=== PATIENT | male | born 1965 | race Caucasian/White ===

== ENCOUNTER 2018-01-26 19:10 | Emergency (ER) | END 2018-01-27 01:46 | disposition home or self-care (01) ==

== ENCOUNTER 2018-03-19 13:41 | Emergency (ER) | END 2018-03-19 19:00 | disposition left against medical advice (07) ==

== ENCOUNTER 2018-09-30 01:27 | Emergency (ER) | payer MEDICAID ==
[~2018-09-30] VITALS: Wt 67.1 kg
[~2018-09-30 01:27] MED LIST: CHLO25CA9 PO; CLOT30CR24 TOP; IBUP200C11 PO
[2018-09-30] MEDS ORDERED: SOD CHLORIDE 0.9% 1,000 ML IV STA (01:57)
[2018-09-30] MEDS ORDERED: PANTOPRAZOLE IV 80 MG in SOD CHLORIDE 0.9% 100 ML IVPB STA (01:57)
[2018-09-30] MEDS ORDERED: OCTREOTIDE 50 MCG in SOD CHLORIDE 0.9% 25 ML IVPB STA (01:57)
[2018-09-30] MEDS ORDERED: ONDANSETRON 4 MG INJ IV STA (01:57)
[2018-09-30] MEDS ORDERED: NOVO3I SC (03:41)
[2018-09-30] MEDS ORDERED: SUCR1TAB56 PO (05:34)
[2018-09-30] MEDS ORDERED: RANI150T35 PO (05:34)
[2018-09-30 05:50] VITALS: BP 115/77; PULSE 84; RESP 18
--- NOTE | 2018-10-05 23:21 | ERD ---
ER Documentation Chief Complaint Chief Complaint states been drinking etoh, vomiting blood, abd pain HPI 53-year-old male who states been drinking alcohol and that he vomited blood twice. Denies suicidal homicidal ideation. Denies auditory visual hallucinations denies any fevers or chills. Denies any other current complaints. 2 episodes of blood-streaked vomitus. ROS All systems reviewed and are negative except as per history of present illness. Medications Home Meds Active Scripts Ranitidine Hcl* (Zantac*) 150 Mg Tablet, 150 MG PO BID PRN for EPIGASTRIC PAIN, #30 TAB Prov:COLBY KLEIN 09/30/18 Sucralfate* (Carafate*) 1 Gm Tab, 1 GM PO QID, #30 TAB Prov:COLBY KLEIN 09/30/18 Reported Medications Insulin Aspart* (Novolog Insulin Pen*) 100 Unit/Ml Soln, 1 UNIT SC WITH BREAKFAST DINNE, EA INJECT SC 45u at Breakfast and 35u at Dinner 09/30/18 Discontinued Reported Medications Ibuprofen* (Advil*) 200 Mg Capsule, PO PRN 07/02/13 Discontinued Scripts Chlordiazepoxide* (Chlordiazepoxide*) 25 Mg Capsule, 25 MG PO Q8 PRN for ANXIETY, #10 CAP Prov:BRENDON CHAMBERS MD 01/27/18 Clotrimazole* (Clotrimazole* AF) 1% - 30 Gm Cream.gm., 1 APPLIC TOP BID for 7 Days, TUB Prov:SOPHIE SARGENT MD 04/27/16 Allergies Allergies: Coded Allergies: No Known Allergy (Unverified , 09/30/18) PMhx/Soc History of Surgery: Yes (L. ANKLE) Hx Miscellaneous Medical Probl: Yes (ALCOHOLISM, DM) Hx Alcohol Use: Yes (daily wine) Hx Substance Use: No Hx Tobacco Use: No Smoking Status: Unknown if ever smoked Physical Exam Physical Exam Const: No acute distress Head: Atraumatic Eyes: Normal Conjunctiva ENT: Normal External Ears, Nose and Mouth. Neck: Full range of motion. No meningismus. Resp: Clear to auscultation bilaterally Cardio: Regular rate and rhythm, no murmurs Abd: Soft, non tender, non distended. Normal bowel sounds Skin: No petechiae or rashes Back: No midline or flank tenderness Ext: No cyanosis, or edema Neur: Awake and alert Psych: Normal Mood and Affect Results 24 hrs Laboratory Tests Test 09/30/18 02:32 09/30/18 02:34 White Blood Count 9.3 10^3/ul Red Blood Count 4.28 10^6/ul Hemoglobin 12.7 g/dl Hematocrit 38.2 % Mean Corpuscular Volume 89.3 fl Mean Corpuscular Hemoglobin 29.7 pg Mean Corpuscular Hemoglobin Concent 33.2 g/dl Red Cell Distribution Width 13.4 % Platelet Count 113 10^3/UL Mean Platelet Volume 12.6 fl Immature Granulocytes % 0.400 % Neutrophils % 71.4 % Lymphocytes % 14.4 % Monocytes % 7.4 % Eosinophils % 5.8 % Basophils % 0.6 % Nucleated Red Blood Cells % 0.0 /100WBC Immature Granulocytes # 0.040 10^3/ul Neutrophils # 6.6 10^3/ul Lymphocytes # 1.3 10^3/ul Monocytes # 0.7 10^3/ul Eosinophils # 0.5 10^3/ul Basophils # 0.1 10^3/ul Nucleated Red Blood Cells # 0.0 10^3/ul Prothrombin Time 14.2 Sec Prothrombin Time Ratio 1.1 INR International Normalized Ratio 1.09 Activated Partial Thromboplast Time 31.5 Sec Lipase 84 U/L Sodium Level 144 mmol/L Potassium Level 3.7 mmol/L Chloride Level 99 mmol/L Carbon Dioxide Level 26 mmol/L Anion Gap 19 Blood Urea Nitrogen 10 mg/dl Creatinine 0.52 mg/dl Est Glomerular Filtrat Rate mL/min > 60 mL/min Glucose Level 251 mg/dl Calcium Level 8.9 mg/dl Total Bilirubin 0.4 mg/dl Direct Bilirubin 0.00 mg/dl Indirect Bilirubin 0.4 mg/dl Aspartate Amino Transf (AST/SGOT) 131 IU/L Alanine Aminotransferase (ALT/SGPT) 31 IU/L Alkaline Phosphatase 359 IU/L Troponin I < 0.012 ng/ml Total Protein 8.9 g/dl Albumin 4.2 g/dl Globulin 4.70 g/dl Albumin/Globulin Ratio 0.89 Current Medications Medications Dose Sig/Bambi Start Time Status Last (Trade) Ordered Route PRN Stop Time Admin Dose Reason Admin Sodium 1,000 ml @ Q1H STAT 09/30/18 DC 09/30/18 Chloride 1,000 mls/hr IV 01:57 09/30/18 02:44 02:56 Pantoprazole 100 ml @ ONCE STAT 09/30/18 DC 80 mg/Sodium 400 mls/hr IVPB 01:57 09/30/18 Chloride 02:11 Octreotide 26 ml @ Q16M STAT 09/30/18 DC Acetate 50 100 mls/hr IVPB 01:57 09/30/18 mcg/ Sodium 02:12 Chloride Ondansetron 4 mg ONCE STAT 09/30/18 DC 09/30/18 HCl (Zofran IV 01:57 09/30/18 02:44 Inj) 01:59 Procedures/MDM EKG: Rate/Rhythm: [Normal Sinus Rhythm] QRS, ST, T-waves: [No changes consistent w/ acute ischemia] Impression: [No evidence of ischemia or arrhythmia] Chest X-ray 1V Interpreted by me: Soft Tissue: No acute abnormalities Bones: No acute abnormalities Mediastinum/Cardiac Silhouette/Lungs: [No acute abnormalities] Medical decision making: This a 52-year-old male likely has mild erosive gastritis secondary to alcohol abuse. At this point clinically stable for outpatient management. No active bleeding. Normal CBC. Will be discharged home. Advised stop drinking. Departure Diagnosis: Primary Impression: Gastritis Gastritis type: unspecified gastritis Chronicity: unspecified Gastritis bleeding: with bleeding Qualified Codes: K29.71 - Gastritis, unspecified, with bleeding Condition: Stable Patient Instructions: Gastritis (Adult) COLBY KLEIN Oct 05, 2018 23:21
== END 2018-09-30 05:50 | disposition home or self-care (01) ==
LOC: E/R 01:27
DX: K29.71 Gastritis, unspecified, with bleeding (principal); E11.9 Type 2 diabetes mellitus without complications; Z79.4 Long term (current) use of insulin
CPT/HCPCS: 80053; 83690; 84484; 85025; 85610; 85730; 86850; 86900; 86901; 93005; C9113; J2354; J2405; J7030; Z7610; 36415; 96361; 96374

== ENCOUNTER 2018-11-08 11:18 | Emergency (ER) | payer MEDICAID ==
[~2018-11-08] VITALS: Ht 165.1 cm; Wt 66.0 kg
[~2018-11-08 11:18] MED LIST changes: -CHLO25CA9 PO; -CLOT30CR24 TOP; -IBUP200C11 PO; +NOVO3I SC; +RANI150T35 PO; +SUCR1TAB56 PO
[2018-11-08 11:23] VITALS: Ht 165.1 cm; Wt 66.0 kg
[2018-11-08] MEDS ORDERED: SOD CHLORIDE 0.9% 1,000 ML IV STA (16:03)
[2018-11-08] MEDS ORDERED: IBUP-1542 PO (17:11)
[2018-11-08] MEDS ORDERED: NOVO7030 SC ×2 (17:19)
[2018-11-08] MEDS ORDERED: GABA300C16 PO (17:20)
[2018-11-08 17:36] VITALS: BP 122/83; PULSE 98; RESP 14
--- NOTE | 2018-11-08 18:10 | ERD ---
ER Documentation Chief Complaint Chief Complaint diabetic , last drink last night , feels weak , vomiting HPI Patient is a 53-year-old male with diabetes who presents with headache. The patient says that he is homeless. He is diabetic. He says that he has had "3 attacks to the head" when his vision goes dark. It comes and goes. He has headache as well. He said that he has not been eating for the past 3 days because he has no money. However he has been drinking alcohol. Upon review of old medical records this is the patient's sixth visit to the ER since 2012. He does not remember his primary doctor at this time. ROS All systems reviewed and are negative except as per history of present illness. Medications Home Meds Active Scripts Ibuprofen* (Motrin*) 600 Mg Tab, 600 MG PO Q6H PRN for PAIN AND OR ELEVATED TEMP, #30 TAB Prov:DARION MARCANO MD 11/08/18 Reported Medications Gabapentin* (Gabapentin*) 300 Mg Capsule, 300 MG PO BID, #60 CAP 11/08/18 Insulin Isophan/Regular (Humulin 70/30) 100 Units/Ml Susp, 35 UNIT SC QPM, EA 11/08/18 Insulin Isophan/Regular (Humulin 70/30) 100 Units/Ml Susp, 45 UNIT SC QAM, EA 11/08/18 Discontinued Reported Medications Insulin Aspart* (Novolog Insulin Pen*) 100 Unit/Ml Soln, 1 UNIT SC WITH BREAKFAST DINNE, EA INJECT SC 45u at Breakfast and 35u at Dinner 09/30/18 Discontinued Scripts Ranitidine Hcl* (Zantac*) 150 Mg Tablet, 150 MG PO BID PRN for EPIGASTRIC PAIN, #30 TAB Prov:COLBY KLEIN 09/30/18 Sucralfate* (Carafate*) 1 Gm Tab, 1 GM PO QID, #30 TAB Prov:COLBY KLEIN 09/30/18 Allergies Allergies: Coded Allergies: No Known Allergy (Unverified , 09/30/18) PMhx/Soc History of Surgery: Yes (L. ANKLE) Anesthesia Reaction: No Hx Neurological Disorder: No Hx Respiratory Disorders: No Hx Cardiac Disorders: No Hx Psychiatric Problems: No Hx Miscellaneous Medical Probl: Yes (ALCOHOLISM, DM) Hx Alcohol Use: Yes (daily beer) Hx Substance Use: No Hx Tobacco Use: No Smoking Status: Never smoker FmHx Family History: No diabetes Physical Exam Vitals Vital Signs Date Temp Pulse Resp B/P (MAP) Pulse Ox O2 O2 Flow FiO2 Time Delivery Rate 11/08/18 68 14 122/83 99 Room Air 17:36 (96) 98 11/08/18 98 16 128/86 99 Room Air 16:14 (100) 11/08/18 98.3 62 18 122/65 99 Room Air 15:33 (84) 11/08/18 99.1 103 18 124/72 98 11:23 (89) Physical Exam Const: No acute distress Head: Atraumatic Eyes: Normal Conjunctiva ENT: Normal External Ears, Nose and Mouth. Neck: Full range of motion. No meningismus. Resp: Clear to auscultation bilaterally Cardio: Regular rate and rhythm, no murmurs Abd: Soft, non tender, non distended. Normal bowel sounds Skin: No petechiae or rashes Back: No midline or flank tenderness Ext: No cyanosis, or edema Neur: Awake and alert, cranial nerves II through XII intact, strength is 5 out of 5 in all 4 extremities, no pronator drift, cafeteria director strength is equal bilaterally, no slurred speech Psych: Normal Mood and Affect Result Diagram: 11/08/18 1613 11/08/18 1613 Results 24 hrs Laboratory Tests Test 11/08/18 11:23 11/08/18 15:58 11/08/18 16:13 Bedside Glucose 383 mg/dL 156 mg/dL White Blood Count 14.3 10^3/ul Red Blood Count 4.32 10^6/ul Hemoglobin 12.7 g/dl Hematocrit 38.2 % Mean Corpuscular Volume 88.4 fl Mean Corpuscular Hemoglobin 29.4 pg Mean Corpuscular 33.2 g/dl Hemoglobin Concent Red Cell Distribution Width 14.0 % Platelet Count 188 10^3/UL Mean Platelet Volume 12.6 fl Immature Granulocytes % 0.700 % Neutrophils % 69.0 % Lymphocytes % 16.7 % Monocytes % 7.7 % Eosinophils % 5.2 % Basophils % 0.7 % Nucleated Red Blood Cells % 0.0 /100WBC Immature Granulocytes # 0.100 10^3/ul Neutrophils # 9.9 10^3/ul Lymphocytes # 2.4 10^3/ul Monocytes # 1.1 10^3/ul Eosinophils # 0.8 10^3/ul Basophils # 0.1 10^3/ul Nucleated Red Blood Cells # 0.0 10^3/ul Urine Color LUZMA Urine Clarity SLIGHTLY CLOUDY Urine pH 5.0 Urine Specific [place] 1.036 Urine Ketones NEGATIVE mg/dL Urine Nitrite NEGATIVE mg/dL Urine Bilirubin 2+ mg/dL Urine Urobilinogen 2+ mg/dL Urine Leukocyte Esterase NEGATIVE Aroldo/ul Urine Microscopic RBC 2 /HPF Urine Microscopic WBC 4 /HPF Urine Mucus MANY /HPF Urine Hemoglobin NEGATIVE mg/dL Urine Glucose 1+ mg/dL Urine Total Protein 1+ mg/dl Sodium Level 140 mmol/L Potassium Level 3.8 mmol/L Chloride Level 97 mmol/L Carbon Dioxide Level 29 mmol/L Anion Gap 14 Blood Urea Nitrogen 11 mg/dl Creatinine 0.67 mg/dl Est Glomerular Filtrat > 60 mL/min Rate mL/min Glucose Level 186 mg/dl Calcium Level 9.3 mg/dl Total Bilirubin 0.6 mg/dl Direct Bilirubin 0.00 mg/dl Indirect Bilirubin 0.6 mg/dl Aspartate Amino Transf (AST/SGOT) 122 IU/L Alanine 18 IU/L Aminotransferase (ALT/SGPT) Alkaline Phosphatase 567 IU/L Troponin I < 0.012 ng/ml Total Protein 9.6 g/dl Albumin 4.0 g/dl Globulin 5.60 g/dl Albumin/Globulin Ratio 0.71 Lipase 318 U/L Urine Opiates Screen Negative Urine Barbiturates Negative Urine Amphetamines Screen Negative Urine Benzodiazepines Screen Negative Urine Cocaine Screen Negative Urine Cannabinoids Negative Ethyl Alcohol Level 161.0 mg/dl Current Medications Medications Dose Sig/Bambi Start Time Status Last (Trade) Ordered Route PRN Stop Time Admin Dose Reason Admin Sodium 1,000 ml @ Q1H STAT 11/08/18 DC 11/08/18 Chloride 1,000 mls/hr IV 16:03 16:13 11/08/18 17:02 Procedures/MDM CT brain read by radiology. Patient is a 53-year-old male who presents with headache. Laboratory studies were basically normal. CT scan of the brain shows no sign of stroke or brain mass. At this point I doubt stroke, intra-cranial hemorrhage, intra-cranial mass, or serious electrolyte abnormality. The patient was found to have an alcohol level 161 which may be related to some of his symptoms. The patient will need to follow-up closely with his primary doctor within 24-48 hours but I do not believe he requires admission to the hospital at this time. Patient can return for any worsening symptoms. Departure Diagnosis: Primary Impression: Alcohol intoxication Complication of substance-induced condition: uncomplicated Qualified Codes: F10.920 - Alcohol use, unspecified with intoxication, uncomplicated Additional Impression: Headache Headache type: unspecified Headache chronicity pattern: acute headache Intractability: not intractable Qualified Codes: R51 - Headache Condition: Fair Patient Instructions: Self-Care for Headaches Referrals: Your doctor Additional Instructions: Llame al doctor nombrado danettejo (Referral Sources) MAANA y margarette barry SYDNIE PARA DENTRO DE BARRY SEMANA. Dgale a la secretaria que nosotros le instruimos hacer esta sydnie.Avise o llame si camacho condicin se empeora antes de la sydnie. DARION MARCANO MD Nov 08, 2018 18:10
== END 2018-11-08 17:37 | disposition home or self-care (01) ==
LOC: E/R 11:18
DX: F10.920 Alcohol use, unspecified with intoxication, uncomplicated (principal); E11.9 Type 2 diabetes mellitus without complications; R51 Headache; Z79.4 Long term (current) use of insulin
CPT/HCPCS: 70450; 80053; 80307; 81001; 82962; 83690; 84484; 85025; J7030; Z7502

== ENCOUNTER 2018-12-27 15:43 | Emergency (ER) | payer MEDICAID ==
[~2018-12-27] VITALS: Wt 65.6 kg
[~2018-12-27 15:43] MED LIST changes: +GABA300C16 PO; +IBUP-1542 PO; -NOVO3I SC; +NOVO7030 SC; -RANI150T35 PO; -SUCR1TAB56 PO
[2018-12-27] MEDS ORDERED: ONDANSETRON 4 MG INJ IV STA (16:08)
[2018-12-27] MEDS ORDERED: SOD CHLORIDE 0.9% 1,000 ML IV STA (16:08)
[2018-12-27] MEDS ORDERED: PANTOPRAZOLE IV 80 MG in SOD CHLORIDE 0.9% 100 ML IVPB STA (16:08)
--- NOTE | 2018-12-27 16:09 | ERD ---
ER Documentation Chief Complaint Chief Complaint HEMATEMESIS, ETOH HPI 53-year-old male With a history of diabetes and alcoholism complaining of epigastric abdominal pain and nausea with vomiting. He states that there was some blood in his vomit today. He states that he occasionally has a burning epigastric pain and pressure-like pain but currently denies any pain while I am talking to him. He does complain of mild nausea. He denies any melena or hematochezia, but he states he has not really looked. He drinks alcohol regul bertram. ROS All systems reviewed and are negative except as per history of present illness. Medications Home Meds Active Scripts Metoclopramide* (Reglan*) 10 Mg Tablet, 10 MG PO Q6 PRN for NAUSEA AND/OR VOMITING, #10 TAB Prov:ADELA HENLEY MD 12/27/18 Omeprazole* (Omeprazole*) 40 Mg Capsule.dr, 40 MG PO DAILY, #30 CAP Prov:ADELA HENLEY MD 12/27/18 Ibuprofen* (Motrin*) 600 Mg Tab, 600 MG PO Q6H PRN for PAIN AND OR ELEVATED TEMP, #30 TAB Prov:DARION MARCANO MD 11/08/18 Reported Medications Gabapentin* (Gabapentin*) 300 Mg Capsule, 300 MG PO BID, #60 CAP 11/08/18 Insulin Isophan/Regular (Humulin 70/30) 100 Units/Ml Susp, 35 UNIT SC QPM, EA 11/08/18 Insulin Isophan/Regular (Humulin 70/30) 100 Units/Ml Susp, 45 UNIT SC QAM, EA 11/08/18 Allergies Allergies: Coded Allergies: No Known Allergy (Unverified , 09/30/18) PMhx/Soc History of Surgery: Yes (L. ANKLE) Anesthesia Reaction: No Hx Neurological Disorder: No Hx Respiratory Disorders: No Hx Cardiac Disorders: No Hx Psychiatric Problems: No Hx Miscellaneous Medical Probl: Yes (ALCOHOLISM, DM) Hx Alcohol Use: Yes (daily beer) Hx Substance Use: No Hx Tobacco Use: No FmHx Family History: diabetes Physical Exam Vitals Vital Signs Date Temp Pulse Resp B/P (MAP) Pulse Ox O2 O2 Flow FiO2 Time Delivery Rate 12/27/18 98.0 96 18 104/74 99 Room Air 19:06 (84) 12/27/18 98.0 97 16 130/69 100 Room Air 18:21 (89) 12/27/18 98.0 89 20 115/77 97 Room Air 17:51 (90) 12/27/18 98.1 101 18 128/78 99 15:55 (95) Physical Exam Const: No acute distress Head: Atraumatic Eyes: Normal Conjunctiva ENT: Dry mucous membranes. Normal External Ears, Nose and Mouth. Neck: Full range of motion. No meningismus. Resp: Clear to auscultation bilaterally Cardio: Regular rate and rhythm, no murmurs Abd: Soft, non tender, non distended. Normal bowel sounds Skin: No petechiae or rashes Back: No midline or flank tenderness Ext: No cyanosis, or edema Neur: Awake and alert Psych: Normal Mood and Affect Result Diagram: 12/27/18 1824 12/27/18 1616 Results 24 hrs Laboratory Tests Test 12/27/18 16:16 12/27/18 17:12 12/27/18 17:45 12/27/18 18:24 White Blood Count 7.1 10^3/ul 5.9 10^3/ul Red Blood Count 3.59 10^6/ul 3.40 10^6/ul Hemoglobin 9.9 g/dl 9.3 g/dl Hematocrit 31.2 % 29.4 % Mean Corpuscular 86.9 fl 86.5 fl Volume Mean Corpuscular 27.6 pg 27.4 pg Hemoglobin Mean Corpuscular 31.7 g/dl 31.6 g/dl Hemoglobin Concen t Red Cell 13.8 % 13.7 % Distribution Width Platelet Count 98 10^3/UL 82 10^3/UL Mean Platelet 12.7 fl 13.0 fl Volume Immature 0.400 % 0.500 % Granulocytes % Neutrophils % 69.1 % 71.6 % Lymphocytes % 18.2 % 17.8 % Monocytes % 8.2 % 7.1 % Eosinophils % 3.5 % 2.5 % Basophils % 0.6 % 0.5 % Nucleated Red 0.0 /100WBC 0.0 /100WBC Blood Cells % Immature 0.030 10^3/ul 0.030 10^3/ul Granulocytes # Neutrophils # 4.9 10^3/ul 4.2 10^3/ul Lymphocytes # 1.3 10^3/ul 1.1 10^3/ul Monocytes # 0.6 10^3/ul 0.4 10^3/ul Eosinophils # 0.3 10^3/ul 0.2 10^3/ul Basophils # 0.0 10^3/ul 0.0 10^3/ul Nucleated Red 0.0 10^3/ul 0.0 10^3/ul Blood Cells # Prothrombin Time 15.2 Sec Prothrombin Time 1.2 Ratio INR International 1.19 Normalized Ratio Activated 32.4 Sec Partial Thrombopl ast Time Sodium Level 140 mmol/L Potassium Level 3.7 mmol/L Chloride Level 100 mmol/L Carbon Dioxide 23 mmol/L Level Anion Gap 17 Blood Urea 8 mg/dl Nitrogen Creatinine 0.71 mg/dl Est Glomerular > 60 mL/min Filtrat Rate mL/min Glucose Level 454 mg/dl Calcium Level 8.7 mg/dl Total Bilirubin 0.4 mg/dl Direct Bilirubin 0.00 mg/dl Indirect 0.4 mg/dl Bilirubin Aspartate Amino 166 IU/L Transf (AST/SGOT) Alanine 27 IU/L Aminotransferase (ALT/SGPT) Alkaline 361 IU/L Phosphatase Troponin I < 0.012 ng/ml Total Protein 8.6 g/dl Albumin 3.9 g/dl Globulin 4.70 g/dl Albumin/Globulin 0.82 Ratio Lipase 89 U/L Urine Color YELLOW Urine Clarity CLEAR Urine pH 6.0 Urine Specific 1.030 [place]en Urine Ketones TRACE mg/dL Urine Nitrite NEGATIVE mg/dL Urine Bilirubin NEGATIVE mg/dL Urine 2+ mg/dL Urobilinogen Urine Leukocyte NEGATIVE Aroldo/ul Esterase Urine Hemoglobin NEGATIVE mg/dL Urine Glucose 3+ mg/dL Urine Total NEGATIVE mg/dl Protein Bedside Glucose 332 mg/dL Current Medications Medications Dose Sig/Bambi Start Time Status Last (Trade) Ordered Route PRN Stop Time Admin Dose Reason Admin Sodium 1,000 ml @ Q1H STAT 12/27/18 DC 12/27/18 Chloride 1,000 mls/hr IV 16:08 12/27/18 16:20 17:07 Pantoprazole 100 ml @ ONCE STAT 12/27/18 DC 12/27/18 80 mg/Sodium 400 mls/hr IVPB 16:08 12/27/18 16:38 Chloride 16:22 Ondansetron 4 mg ONCE STAT 12/27/18 DC 12/27/18 HCl (Zofran IV 16:08 12/27/18 16:20 Inj) 16:09 Insulin 8 unit ONCE ONCE 12/27/18 DC Aspart SC 17:30 12/27/18 (Novolog 17:31 Insulin Pen) Insulin 8 unit ONCE SC 12/27/18 12/27/18 Human 18:00 12/27/18 17:47 Lispro 22:00 (Humalog) Procedures/MDM EMERGENT LABS AND DIAGNOSTIC STUDIES: Lab Results above were reviewed and interpreted by me. CBC: Evidence of anemia, possibly secondary to hematemesis. thrombocytopenia, likely secondary to chronic liver disease CMP: Hyperglycemic. No evidence of clinically significant electrolyte abnormality, acidosis, renal failure, hypoglycemia evidence of liver disease with AST elevation and alk phos elevation, likely due to alcoholism. Lipase: no evidence of pancreatitis Troponin within normal limits, not indicative of cardiac ischemia Lactate within normal limits without evidence of sepsis or tissue hypoperfusion UA: no evidence of infection 12-lead EKG was interpreted by John Henley MD: Normal Sinus Rhythm Normal axis Normal intervals No acute ST or T wave changes suggestive of acute ischemia or STEMI. Radiology Results as interpreted by Radiology below were reviewed by Gifty Henley MD: Chest x-ray shows no acute abnormalities Initial Nursing notes reviewed. Previous Medical Records requested via the Electronic Health Record. EMERGENCY DEPARTMENT COURSE / MEDICAL DECISION MAKING: Patient is presenting with complaints of epigastric abdominal pain with associated vomiting with hematemesis. Vitals are unremarkable. Patient did not have any episodes of vomiting while in the ER. His labs were notable for anemia, which is seemingly new for him compared to prior labs done on previous visit. Serial hemoglobin was done while he was in the ER and remained stable. GI bleeding may be secondary to gastritis versus esophageal varices given his history of alcoholism. However patient has had no episodes of vomiting while here. He has received IV fluids and Protonix IV. He was given a p.o. challenge without any subsequent vomiting or complaints of pain. I do not suspect acute surgical abdomen. He was noted to be hyperglycemic for which she was given insulin. There is no evidence of DKA. I discussed with the patient the importance of alcohol cessation. I recommended starting a PPI outpatient and recommended follow-up with PCP for outpatient GI workup. If any of his symptoms are to worsen or he has recurrent hematemesis, he was encouraged to return to the ER immediately. Patient feels comfortable with this plan. Prescription for omeprazole and Reglan given. Patient's blood pressure was elevated (>120/80) but appears stable without evidence of hypertensive emergency or urgency. The patient was counseled about the risks of hypertension and urged to pursue outpatient monitoring and therapy within a week with their primary care physician. Departure Diagnosis: Primary Impression: Alcohol intoxication Complication of substance-induced condition: uncomplicated Qualified Codes: F10.920 - Alcohol use, unspecified with intoxication, uncomplicated Additional Impressions: Hyperglycemia Anemia Anemia type: unspecified type Qualified Codes: D64.9 - Anemia, unspecified Thrombocytopenia Upper GI bleed Condition: Stable ADELA HENLEY MD Dec 27, 2018 16:09
[2018-12-27] MEDS ORDERED: INSULIN ASPART [NOVOLOG] 3 ML PEN SC ONE (17:30)
[2018-12-27] MEDS ORDERED: INSULIN LISPRO 100 UNIT/ML VIAL SC SCH (18:00)
[2018-12-27 19:06] VITALS: BP 104/74; PULSE 96; RESP 18
[2018-12-27] MEDS ORDERED: OMEP40CA6 PO (19:13)
[2018-12-27] MEDS ORDERED: METO10TA92 PO (19:25)
== END 2018-12-27 19:35 | disposition home or self-care (01) ==
LOC: E/R 15:43
DX: F10.920 Alcohol use, unspecified with intoxication, uncomplicated (principal); E11.65 Type 2 diabetes mellitus with hyperglycemia; D64.9 Anemia, unspecified; D69.6 Thrombocytopenia, unspecified; K92.2 Gastrointestinal hemorrhage, unspecified; Z79.4 Long term (current) use of insulin
CPT/HCPCS: 36415; 71045; 80053; 81003; 82962; 83690; 84484; 85025; 85610; 85730; 86850; 86900; 86901; 96372; 96374; 96375; C9113; J1815; J2405; J7030; Z7502; Z7610

== ENCOUNTER 2019-01-31 14:04 | Emergency (ER) | payer MEDICAID ==
[~2019-01-31] VITALS: Ht 170.2 cm; Wt 78.0 kg
[~2019-01-31 14:04] MED LIST changes: +METO10TA92 PO; +OMEP40CA6 PO
[2019-01-31 18:26] VITALS: Ht 170.2 cm; Wt 78.0 kg
[2019-01-31 19:13] VITALS: BP 108/70; PULSE 83; RESP 18
[2019-01-31] MEDS ORDERED: ACETAMINOPHEN 325 MG TAB PO ONE (19:30)
[2019-01-31] MEDS ORDERED: METOCLOPRAMIDE 10 MG TAB PO ONE (21:00)
[2019-01-31] MEDS ORDERED: DIPHENHYDRAMINE 25 MG CAP PO ONE (21:00)
[2019-01-31] MEDS ORDERED: KETOROLAC 15 MG INJ IM ONE (21:03)
--- NOTE | 2019-01-31 22:36 | ERD ---
ER Documentation Chief Complaint Chief Complaint Pt is BIB headache for a few days appears homeless and unkept HPI This is a 53-year-old male with a past medical history of diabetes, diabetic neuropathy, GERD, alcohol abuse, homelessness who is presenting with a waxing and waning mild to moderate sore aching occipital headache. The patient does not endorse nausea or vomiting. He has not had photophobia or phonophobia. He has not had any blurry or double vision. The patient has had no focal deficits. The patient has had no weakness or numbness or tingling to the face or extremities. He does not endorse any alleviating or exacerbating factors. The patient denies feeling sick recently. The patient denies fever or chills. The patient does not endorse neck or back pain. The patient denies lightheadedness or dizziness. The patient has had no chest pain or trouble breathing. The patient denies abdominal pain. The patient denies changes to bow el movements or urination. The patient does admit to drinking alcohol today. ROS All systems reviewed and are negative except as per history of present illness. Medications Home Meds Active Scripts Metoclopramide* (Reglan*) 10 Mg Tablet, 10 MG PO Q6 PRN for NAUSEA AND/OR VOMITING, #10 TAB Prov:ADELA DUCKWORTH MD 12/27/18 Omeprazole* (Omeprazole*) 40 Mg Capsule.dr, 40 MG PO DAILY, #30 CAP Prov:ADELA DUCKWORTH MD 12/27/18 Ibuprofen* (Motrin*) 600 Mg Tab, 600 MG PO Q6H PRN for PAIN AND OR ELEVATED TEMP, #30 TAB Prov:DARION MARCANO MD 11/08/18 Reported Medications Gabapentin* (Gabapentin*) 300 Mg Capsule, 300 MG PO BID, #60 CAP 11/08/18 Insulin Isophan/Regular (Humulin 70/30) 100 Units/Ml Susp, 35 UNIT SC QPM, EA 11/08/18 Insulin Isophan/Regular (Humulin 70/30) 100 Units/Ml Susp, 45 UNIT SC QAM, EA 11/08/18 Allergies Allergies: Coded Allergies: No Known Allergy (Unverified , 09/30/18) PMhx/Soc History of Surgery: No Anesthesia Reaction: No Hx Neurological Disorder: No Hx Respiratory Disorders: No Hx Cardiac Disorders: No Hx Psychiatric Problems: No Hx Miscellaneous Medical Probl: Yes (DM, ETOH abuse) Hx Alcohol Use: Yes (ETOH abuse) Hx Substance Use: No Hx Tobacco Use: Yes Smoking Status: Current some day smoker FmHx Family History: diabetes Physical Exam Vitals Vital Signs Date Temp Pulse Resp B/P (MAP) Pulse Ox O2 O2 Flow FiO2 Time Delivery Rate 01/31/19 83 18 108/70 100 Room Air 19:13 (83) 01/31/19 98.9 64 18 122/68 98 18:26 (86) Physical Exam Const: No apparent distress, well-developed, well-nourished. Disheveled Head: Normocephalic, Atraumatic Eyes: Normal Conjunctiva. Extraocular movements intact. Pupils equal, round and reactive to light ENT: Normal External Ears, Nose. Dry mucous membranes. Neck: Full range of motion. No meningismus. Resp: Clear to auscultation bilaterally, No wheezes, rales or rhonchi Cardio: Regular rate and rhythm. No murmurs, rubs or gallops Abd: Soft, non tender, non distended. Normal bowel sounds Skin: No petechiae or rashes Back: No midline tenderness. No CVA tenderness Ext: No cyanosis, or edema Neur: Awake and alert, oriented 4. Cranial nerves intact. No facial droop. Normal strength, sensation and coordination. Psych: Normal Mood and Affect Results 24 hrs Laboratory Tests Test 01/31/19 20:47 Bedside Glucose 192 mg/dL Current Medications Medications Dose Sig/Bambi Start Time Status Last (Trade) Ordered Route PRN Stop Time Admin Dose Reason Admin 650 mg ONCE ONCE 01/31/19 DC 01/31/19 Acetaminophen PO 19:30 19:33 (Tylenol 01/31/19 19:31 Tab) 10 mg ONCE ONCE 01/31/19 DC 01/31/19 Metoclopramid PO 21:00 21:58 e HCl 01/31/19 21:01 (Reglan) 25 mg ONCE ONCE 01/31/19 DC 01/31/19 Diphenhydrami PO 21:00 21:29 ne HCl 01/31/19 21:01 (Benadryl) Ketorolac 15 mg ONCE ONCE 01/31/19 DC 01/31/19 Tromethamine IM 21:03 21:29 (Toradol) 01/31/19 21:04 Procedures/[facility] MDM The patient's presentation warrants further investigation. Previous medical records, if available, were reviewed. LABS The patient's laboratory testing was obtained and reviewed. No emergent treatment was required unless described below. Blood sugar: 192 TREATMENT/DISPOSITION The patient presents with a headache. Differential diagnosis includes migraine, tension headache, cluster headache. The patient has no focal deficits. The neurologic exam is reassuring. I have decreased suspicion for cerebral ischemia. There was no trauma or injury. There is no personal or family history of cerebral aneurysm. This is not the worst headache of the patient's life. It was not acutely severe. It is been progressive in nature. I have decreased suspicion for SAH or other ICH. I have low suspicion for temporal arteritis, cavernous venous thrombosis, subdural hematoma, epidural hematoma, meningitis. The patient was treated with Tylenol, Toradol, Reglan and Benadryl with improvement of his headache. The patient's blood sugar is less than 200. There is no evidence of DKA. The patient reportedly takes his insulin as prescribed. The patient admits to alcohol intoxication. He was offered resources for rehabilitation. DISCHARGE Upon reevaluation of the patient, symptoms have improved. No emergent diagnoses were identified. At this time, I feel that the patient stable for discharge. The patient was instructed to follow-up with a primary care physician in 1-3 days. The patient left without discharge papers. Prescriptions: None The patient was medically stable for discharge. The patient was offered a social work consultation to be provided homeless resources in accordance with her hospital policy. The patient declined and instead called his brother who is willing to take him to his house. The patient's blood pressure was elevated at greater than 120/80 while in the emergency department. The patient was otherwise stable with no evidence of hypertensive urgency or emergency. The patient does not require admission for blood pressure control. I have discussed with the patient the risks of hypertension. I have instructed the patient to return to the ER for any new or worsening symptoms including chest pain, shortness of breath, headache, blurred vision, confusion, nausea, vomiting or LOC. I have advised the patient to follow up with the primary care physician for outpatient monitoring and treatment for hypertension in 1-3 days. Disclaimer: Inadvertent spelling and grammatical errors are likely due to EHR/dictation software use and do not reflect on the overall quality of patient care. Note that the electronic time recorded on this note does not necessarily reflect the actual time of the patient encounter. Departure Diagnosis: Primary Impression: Acute headache Headache type: unspecified Intractability: not intractable Qualified Codes: R51 - Headache Additional Impressions: Homelessness Hyperglycemia History of diabetes mellitus Condition: MARQUITA Momin MD January 31, 2019 22:36
== END 2019-02-01 07:44 | disposition home or self-care (01) ==
LOC: E/R 14:04
DX: R51 Headache (principal); F17.210 Nicotine dependence, cigarettes, uncomplicated; E11.65 Type 2 diabetes mellitus with hyperglycemia; Z59.0 Homelessness; Z79.4 Long term (current) use of insulin
CPT/HCPCS: 82962; 96372; J1885; Z7502; Z7610